=== PATIENT | male | born 1975 | race Caucasian/White ===

== ENCOUNTER 2018-08-14 19:34 | Observation (INO) | payer MEDICARE ==
[~2018-08-14 19:34] MED LIST: ISOVUE-370 76%-LOCM 1 ML ONE
[2018-08-14 20:17] LABS: #Eosinphils 0.1 thou/uL (0.0-0.7); #Lymphocytes 2.4 thou/uL (1.20-3.40); #Monocytes 0.4 thou/uL (0.11-0.59); #Neutrophils 3.6 thou/uL (1.40-6.50); %Basophils 0.6 % (0.0-1.0); %Lymphocytes 36.4 % (21.0-51.0); %Neutrophils 55.1 % (42.0-75.0); Hemoglobin 15.1 g/dL (14.0-18.0); Mean Corpuscular Hemoglobin 30.4 pg (27.0-31.0); Mean Corpuscular Volume 92.2 fL (78.0-98.0); Mean Platelet Volume 7.6 fL (7.4-10.4); Platelet Count 212 thou/uL (130-400); RBC Distribution Width 11.8 % (11.5-14.5); Red Blood Cell (RBC) Count 4.94 mill/uL (4.70-6.10); White Blood Cell (WBC) Count 6.5 thou/uL (4.8-10.8)
--- NOTE | 2018-08-14 20:22 | CT ---
FHead CT without contrast: 08/14/2018 COMPARISON: 06/23/2014 HISTORY: Prior stroke, right-sided sensory changes, dizziness, headache TECHNIQUE: Axial CT imaging at 5 mm intervals from vertex through skull base without contrast FINDINGS: There is extensive encephalomalacia within the left MCA territory consistent with a stable remote left MCA infarction. Imaged paranasal sinuses and mastoid air cells are well aerated. No displ aced calvarial fracture. No intracranial hemorrhage, midline shift, or mass effect. There is volume l oss involving the right cerebral peduncle, stable as well. IMPRESSION: Stable head CT as detailed above. Dr. Maynard made aware via phone at 8:18 PM 08/14/2018
[2018-08-14 20:23] LABS: PTT 26.7 SEC (22.9-36.1); Prothrombin Time 13.2 SEC (12.0-14.7)
[2018-08-14] MEDS ORDERED: Aspirin 325 MG TAB ONE (20:40)
[2018-08-14 20:42] LABS: ALT (SGPT) 16 U/L (8-55); AST (SGOT) 15 U/L (5-34); Albumin 4.6 g/dL (3.5-5.0); Alkaline Phosphatase 69 U/L (40-150); Anion Gap 11 mmol/L (10-20); BUN (Urea Nitrogen) 16 mg/dL (8.9-20.6); Bilirubin, Total 0.4 mg/dL (0.2-1.2); Calc. Creatinine Clearance 0 mL/min (70-130); Calcium 9.7 mg/dL (7.8-10.44); Carbon Dioxide 33 mmol/L (22-29); Chloride 103 mmol/L (98-107); Estimated GFR-MDRD 60; Globulin 2.9 g/dL (2.4-3.5); Glucose 83 mg/dL (70-105); Protein, Total 7.5 g/dL (6.0-8.3); Sodium 143 mmol/L (136-145)
--- NOTE | 2018-08-14 20:48 | CT ---
FCT angiogram of head and neck: 08/14/2018 COMPARISON: 08/21/2013 HISTORY: Dizziness, headache, worsening chronic right sided sensory changes, prior history of extensi ve left-sided MCA infarction TECHNIQUE: Axial CT imaging at 1.25 mm intervals from the vertex through the lung apices with IV cont rast using a CT angiogram protocol. Coronal and sagittal 3-D reformatted imaging obtained. FINDINGS: Imaged lung apices are unremarkable. The parotid and submandibular glands appear grossly unremarkable. Limited assessment for aerodigestive tract lesion is unremarkable. No lymphadenopathy is seen. Origin of the left subclavian artery, left common carotid artery, innominate artery, right common car otid artery, and right subclavian artery unremarkable. On the basis of NASCET criteria, no hemodynami adan significant stenosis is seen involving the internal or common carotid artery on either side. Vertebral arteries appear unremarkable. The basilar artery and its branches appear patent. There is extensive encephalomalacia throughout the left MCA territory. The A1 segment and M1 segment appears patent bilaterally. The MCA bifurcation appears grossly unremarkable bilaterally. M2 branches on the left are hypoplastic, consistent with the patient's history of prior extensive infarction. Bilateral anterior cerebral arteries are patent. No central arterial occlusion, saccular aneurysm, or high-grade stenosis. No acute osseous abnormality. IMPRESSION: No acute findings. Results called to Dr. Maynard at 8:40 PM 08/14/2018
[2018-08-14] MEDS ORDERED: Ondansetron PF 4 MG/2 ML Vial IVP PRN (23:29)
[2018-08-14] MEDS ORDERED: Acetaminophen 325 MG TAB PO PRN (23:29)
[2018-08-14] MEDS ORDERED: Ondansetron ODT 4 MG TAB SL PRN (23:29)
[2018-08-14] MEDS ORDERED: Sodium Chloride 0.9% 1,000 ML IV SCH (23:29)
[2018-08-14 23:54] VITALS: BMI 25.4
[2018-08-15] MEDS ORDERED: Acetaminophen 325 MG TAB PO PRN (00:05)
[2018-08-15] MEDS ORDERED: Ondansetron PF 4 MG/2 ML Vial IVP PRN (00:05)
[2018-08-15] MEDS ORDERED: hydrALAZINE 20 MG/ML VIAL SLOW IVP PRN (00:05)
[2018-08-15] MEDS ORDERED: Ondansetron ODT 4 MG TAB PO PRN (00:05)
--- NOTE | 2018-08-15 03:20 | HP ---
PRIMARY CARE PHYSICIAN: Dr. Heri Hu. CHIEF COMPLAINT: Feeling strange and got very dizzy. HISTORY OF PRESENT ILLNESS: The history of present illness is taken from the patient, who has fairly severe expressive aphasia, so therefore it is very limited. But Mr. 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 He says that he was playing with his children when suddenly he got extremely dizzy and was feeling strange. He also said he had a fairly severe headache and felt like something was not right. It was alarming because he said when he had his stroke before, it was due to a severe headache as well. He says that he got his 's attention and as a result, he came to the ER for evaluation. He says the whole episode lasted about 20 minutes and it was completely resolved. He does have some baseline right-sided weakness, but says this is about at its baseline. He denies having any chest pain, shortness of breath, no nausea, no vomiting etc., during this episode, and he tells me that his only medicine is aspirin. REVIEW OF SYSTEMS: This was limited and it was determined primarily with yes/no answers, and was essentially negative except for that mentioned in the history of present illness. PAST MEDICAL HISTORY: Significant for left MCA CVA with expressive aphasia as well as right hemiparesis. He also had a stroke-related seizure. PAST SURGICAL HISTORY: He had a thrombectomy in the left MCA distribution on August 2013. ALLERGIES: NO KNOWN DRUG ALLERGIES. SOCIAL HISTORY: He is . He has 2 children. He is a nonsmoker and nondrinker. FAMILY HISTORY: No history of any known heritable diseases and the patient tells me that he is on an aspirin a day. PHYSICAL EXAMINATION: GENERAL: He is alert and oriented. He appears to be in no acute distress. He is well developed and well nourished. VITAL SIGNS: Blood pressure was 150/90, heart rate 67, respiratory rate of 18, temperature is 98.1. HEENT: His pupils are equal, round, and reactive to light. Extraocular muscles are intact. Sclerae anicteric. Throat, there is no erythema. No exudates. NECK: No adenopathy. No bruits. LUNGS: Clear to auscultation. There is no wheezing. No rales. No rhonchi. CARDIOVASCULAR: He had a normal S1, S2. I did not appreciate an S3 or S4. No murmurs, clicks, or rubs. ABDOMEN: Soft. It is nontender and nondistended. Positive for bowel sounds. No rebound or guarding. EXTREMITIES: There is no clubbing or cyanosis. No edema. He did have some muscle atrophy in the right upper extremity as well as in the right lower extremity. NEUROLOGIC: He has weakness in the right lower extremity; however, he is able to lift it against resistance. In the right upper extremity, he is unable to extend his fingers. The right upper extremity is weak and a bit rigid and he does have some expressive aphasia; however, he is able to make his thoughts known. It is just very, very slow and deliberate in his speech. SKIN AND INTEGUMENT: There are no skin changes. No rash. LABORATORY DATA: His lab results, on his EKG, it was an undetermined rhythm. I was not able to see any P waves, and there was quite a bit of baseline artifact. The heart rate was 74 and this is by my reading. He also had a CT scan of the brain showing some encephalomalacia in the right MCA distribution, but no other change. His sodium was 143, potassium 4.0, chloride is 103, CO2 is 33, BUN of 16, creatinine 1.29, glucose is 83. Troponin is less than 0.010. INR is 1.0. White blood cell count 6.5, hemoglobin 15.1, hematocrit is 45.6, and platelet count is 212. ASSESSMENT: This is a pleasant 43-year-old gentleman, who has had a previous left middle cerebral artery distribution cerebrovascular accident, who had symptoms similar to his previous stroke, lasting about 20 minutes, and has completely resolved. It is possible that this was a transient ischemic attack and for this reason, he will be placed in observation. We will get an echocardiogram. A CT angio has already been done of the neck, which was negative. We will monitor him for signs of atrial fibrillation, check his lipid panel, and monitor his blood pressure, and we will also consult Neurology for further recommendations. Job ID: [id number]
[2018-08-15 06:49] LABS: #Eosinphils 0.1 thou/uL (0.0-0.7); #Lymphocytes 1.7 thou/uL (1.20-3.40); #Monocytes 0.5 thou/uL (0.11-0.59); #Neutrophils 4.3 thou/uL (1.40-6.50); %Basophils 0.5 % (0.0-1.0); %Eosinophils 1.7 % (0.0-10.0); %Lymphocytes 25.9 % (21.0-51.0); %Monocytes 6.9 % (0.0-10.0); Mean Corpuscular HGB CONC 33.3 g/dL (32.0-36.0); Mean Corpuscular Hemoglobin 30.6 pg (27.0-31.0); Mean Corpuscular Volume 92.1 fL (78.0-98.0); Mean Platelet Volume 7.9 fL (7.4-10.4); Platelet Count 184 thou/uL (130-400); RBC Distribution Width 11.9 % (11.5-14.5); Red Blood Cell (RBC) Count 4.58 mill/uL (4.70-6.10); White Blood Cell (WBC) Count 6.7 thou/uL (4.8-10.8)
[2018-08-15 07:18] LABS: Anion Gap 10 mmol/L (10-20); BUN (Urea Nitrogen) 20 mg/dL (8.9-20.6); Calc. Creatinine Clearance 135 mL/min (70-130); Calcium 9.1 mg/dL (7.8-10.44); Carbon Dioxide 26 mmol/L (22-29); Cardiac Risk 3.5 (Less than 4.5); Chloride 109 mmol/L (98-107); Cholesterol 149 mg/dl (< 200 Desired); Estimated GFR-MDRD Greater than 90; Glucose 87 mg/dL (70-105); HDL Cholesterol 43 mg/dL (>60 Neg Risk); LDL Cholesterol, Calculated 96 mg/dL; Sodium 141 mmol/L (136-145); Triglycerides 52 mg/dL (Less than 150)
[2018-08-15 08:14] VITALS: BP 147/74; TEMP 97.7
[2018-08-15] MEDS ORDERED: Enoxaparin Sodium 40 MG/0.4 ML SYRINGE SC SCH (09:00)
[2018-08-15] MEDS ORDERED: Aspirin 325 mg Enteric Coated Tablet PO SCH (09:00)
--- NOTE | 2018-08-15 13:17 | DIS ---
DATE OF ADMISSION: 08/14/2018 DATE OF DISCHARGE: 08/15/2018 PRIMARY CARE PROVIDER: Dr. Heri Hu. DISCHARGE DIAGNOSIS: Headache. CONDITION OF PATIENT ON THE DAY OF DISCHARGE: Stable. I assessed Mr. Raya on the day of discharge. He denies any chest pain or shortness of breath. He denies any headache. Vital signs are stable. S1 and S2 are heard, regular. Lungs are clear to auscultation bilaterally. CONSULTATIONS DURING THIS HOSPITALIZATION: Neurology, Dr. Maguire. DISCHARGE MEDICATIONS: Aspirin 325 mg daily. The patient has been advised to discuss with his primary care provider regarding statin given his history of stroke. HOSPITAL COURSE: Mr. Raya is a pleasant 43-year-old gentleman, who was admitted to [facility] on August 14, 2018, for headache and stroke-like symptoms, which resolved. Please refer to Dr. Lenz's history and physical note dated August 15, 2018, for further details. Fasting lipid profile showed triglycerides 52, cholesterol 149, LDL cholesterol 96, and HDL cholesterol 43. He was seen by Neurology Service and has been cleared for discharge. No further testing was needed, per Neurology Service. Many thanks for allowing me to participate in your patient's care. Please feel free to contact me with any questions or concerns. DISCHARGE DESTINATION: Home. Job ID: [id number]
--- NOTE | 2018-08-15 13:57 | CON ---
DATE OF CONSULTATION: 08/15/2018 CONSULTING PHYSICIAN: Hospitalist Services. IMPRESSION: 1. Transient headache with dizziness and tingling, possibly secondary to a focal seizure. 2. Prior left middle cerebral artery stroke with expressive aphasia and right hemiparesis. PLAN: The patient appears stable for discharge. HISTORY OF PRESENT ILLNESS: Mr. Raya is 43-year-old man, who suffered a stroke 5 years ago. He has residual expressive aphasia and right-sided weakness. He was at home with his when he started to develop an acute headache. It was apparently on the left side of the head. He told his that there was some amount of dizziness and tingling going on, on the right side. She became concerned that he might be experiencing a new stroke. She brought him to the emergency room for evaluation. His symptoms only lasted about 20 minutes. Otherwise things have been going well recently, had no other complaints of any new symptoms such as nausea, vomiting, blurred vision, difficulty swallowing, alteration of consciousness, or new weakness. PAST MEDICAL HISTORY: Stroke, diabetes, and hypertension. ALLERGIES: NONE. SOCIAL HISTORY: No tobacco or alcohol use. FAMILY HISTORY: Noncontributory. MEDICATION LIST: 1. Aspirin. 2. Lipitor. 3. Apresoline. REVIEW OF SYSTEMS: A 10 system review of systems, otherwise negative. PHYSICAL EXAMINATION: VITAL SIGNS: Blood pressure 147/74, pulse 65, respirations 16, and temperature 97.7. HEENT: Pupils are equal and reactive. Conjunctivae are clear. Oropharynx clear. No ptosis present. NECK: Supple. EXTREMITIES: No cyanosis, clubbing, or edema. NEUROLOGIC: He was alert and cooperative. He was sitting at the bedside, eating his cereal. Speech was notable for a fairly significant expressive aphasia, but he seemed to comprehend well. Cranial nerves did not show any facial asymmetry or other focal deficits. Motor exam showed spastic right hemiparesis involving the arm much greater than the leg. Light touch was intact. Gait was not tested. No abnormal movements were seen. DIAGNOSTIC DATA: CT scan of the brain was reviewed, which showed a large area of encephalomalacia involving the left MCA territory. No acute hemorrhage was present. Laboratory studies; unremarkable CBC, coags, and chemistry panel. His cholesterol ratio was 3.5. EKG shows sinus rhythm. SUMMARY: A 43-year-old man with a prior stroke, who had some transient headache, tingling, and dizziness. I suspect that it could have been related to some focal seizure activity, though it is difficult to prove at this point. He seems to be back to his baseline. I do not see any further tests that would be of value at this point. He will be discharged home at your discretion. Job ID: [id number]
[2018-08-15] MEDS ORDERED: Atorvastatin Calcium 40 MG TAB PO SCH (21:00)
--- NOTE | 2018-08-19 14:17 | CT ---
CT angiogram of head and neck: 08/14/2018 COMPARISON: 08/21/2013 HISTORY: Dizziness, headache, worsening chronic right sided sensory changes, prior history of extensi ve left-sided MCA infarction TECHNIQUE: Axial CT imaging at 1.25 mm intervals from the vertex through the lung apices with IV cont rast using a CT angiogram protocol. Coronal and sagittal 3-D reformatted imaging obtained. FINDINGS: Imaged lung apices are unremarkable. The parotid and submandibular glands appear grossly unremarkable. Limited assessment for aerodigestive tract lesion is unremarkable. No lymphadenopathy is seen. Origin of the left subclavian artery, left common carotid artery, innominate artery, right common car otid artery, and right subclavian artery unremarkable. On the basis of NASCET criteria, no hemodynami adan significant stenosis is seen involving the internal or common carotid artery on either side. Vertebral arteries appear unremarkable. The basilar artery and its branches appear patent. There is extensive encephalomalacia throughout the left MCA territory. The A1 segment and M1 segment appears patent bilaterally. The MCA bifurcation appears grossly unremarkable bilaterally. M2 branches on the left are hypoplastic, consistent with the patient's history of prior extensive infarction. Bilateral anterior cerebral arteries are patent. No central arterial occlusion, saccular aneurysm, or high-grade stenosis. No acute osseous abnormality. IMPRESSION: No acute findings. Results called to Dr. Maynard at 8:40 PM 08/14/2018 Transcribed Date/Time: 08/19/2018 2:16 PM
== END 2018-08-15 11:40 | disposition home or self-care (01) ==
LOC: ERS 19:34 → 2SE 22:26
PROVIDERS: ADMIT Family Medicine; ATTEND Family Medicine
DX: R51 Headache (principal); I69.920 Aphasia following unspecified cerebrovascular disease; I69.951 Hemiplegia and hemiparesis following unspecified cerebrovascular disease affecting right dominant side; G40.509 Epileptic seizures related to external causes, not intractable, without status epilepticus; Z79.82 Long term (current) use of aspirin
CPT/HCPCS: 70450; 70496; 70498; 80048; 80053; 80061; 82962 ×2; 84484; 85025 ×2; 85610; 85730; 93005; 99285; G0378 ×2; 36415; 36416; J1650; Q9966